=== PATIENT | female | born 1955 | race Asian ===

== ENCOUNTER → 2016-12-03 | Outpatient (CLI) | payer MEDICAID | LOC: BRMIMAGING 09:23 | PROVIDERS: ATTEND Registered Nurse | DX: Z12.39 Encounter for other screening for malignant neoplasm of breast (principal); N63 Unspecified lump in breast | CPT/HCPCS: 76641-PO; G0204 ==

== ENCOUNTER → 2017-12-04 | Outpatient (CLI) | payer MEDICAID | LOC: BRMIMAGING 08:23 | PROVIDERS: ATTEND Registered Nurse | DX: Z12.31 Encounter for screening mammogram for malignant neoplasm of breast (principal) ==

== ENCOUNTER → 2018-12-24 | Outpatient (CLI) | payer OTHER | LOC: BRMIMAGING 09:21 ==